=== PATIENT | male | born 1960 | race Caucasian/White ===

== ENCOUNTER 2017-01-25 23:35 | Inpatient (IN) | payer MEDICARE, OTHER ==
[~2017-01-25] VITALS: Ht 175.3 cm; Wt 60.3 kg
[2017-01-26 00:28] LABS: HEMOGLOBIN 13.8 gm/dl (14.0-17.5); RED BLOOD COUNT 3.88 M/UL (4.20-5.50)
[2017-01-26 00:42] LABS: BUN/CREATININE RATIO 4 (0-10)
[2017-01-26 07:16] LABS: BUN/CREATININE RATIO 5 (0-10)
[2017-01-26 12:34] LABS: BUN/CREATININE RATIO 8 (0-10)
[2017-01-26] MEDS ORDERED: ARICEPT10 MG PO (14:52)
[2017-01-26] MEDS ORDERED: LISINOPRIL10 MG PO (14:53)
[2017-01-26] MEDS ORDERED: TRAZODONE HCL50 MG PO (14:53)
[2017-01-26] MEDS ORDERED: LEVETIRACETAM500 MG PO (14:56)
[2017-01-26] MEDS ORDERED: PRAVASTATIN SOD10 MG PO (14:56)
[2017-01-27 04:02] LABS: HEMOGLOBIN 12.2 gm/dl (14.0-17.5); RED BLOOD COUNT 3.34 M/UL (4.20-5.50); WHITE BLOOD COUNT 4.3 K/UL (4.5-11.0)
[2017-01-27 04:04] LABS: BUN/CREATININE RATIO 8 (0-10)
[2017-01-28 03:56] LABS: HEMOGLOBIN 11.8 gm/dl (14.0-17.5); RED BLOOD COUNT 3.39 M/UL (4.20-5.50); WHITE BLOOD COUNT 3.8 K/UL (4.5-11.0)
[2017-01-28 04:17] LABS: BUN/CREATININE RATIO 8 (0-10)
[2017-01-29 04:07] LABS: HEMOGLOBIN 12.1 gm/dl (14.0-17.5); RED BLOOD COUNT 3.39 M/UL (4.20-5.50); WHITE BLOOD COUNT 3.6 K/UL (4.5-11.0)
[2017-01-29 04:28] LABS: BUN/CREATININE RATIO 15 (0-10)
[2017-01-30 05:59] LABS: BUN/CREATININE RATIO 18 (0-10)
[2017-01-30] MEDS ORDERED: THERA-M CAPLET1 EAC1 PO (18:02)
[2017-01-30] MEDS ORDERED: ENSURE LIQUID237 ML PO (18:03)
[2017-01-30] MEDS ORDERED: ZANTAC 150 MG150 MG PO (18:04)
== END 2017-01-30 18:32 | disposition home health service (06) | DRG 896 ==
LOC: ER1 23:35 → CCU 01-26 08:18 → ZEROF 01-26 08:18 → CCU 01-26 14:26 → PROG CARE 01-28 21:20 → MED SURG 4 01-29 18:12
PROVIDERS: Emergency Medicine; Internal Medicine Infectious Disease; ADMIT Internal Medicine
DX: F10.20 Alcohol dependence, uncomplicated (principal); G93.41 Metabolic encephalopathy; E87.1 Hypo-osmolality and hyponatremia; Z68.1 Body mass index [BMI] 19.9 or less, adult; E44.0 Moderate protein-calorie malnutrition; E16.2 Hypoglycemia, unspecified; I10 Essential (primary) hypertension; Z09 Encounter for follow-up examination after completed treatment for conditions other than malignant neoplasm; F17.210 Nicotine dependence, cigarettes, uncomplicated; E87.6 Hypokalemia; Z71.41 Alcohol abuse counseling and surveillance of alcoholic; E86.0 Dehydration; Z96.652 Presence of left artificial knee joint; Z91.81 History of falling; S00.93XA Contusion of unspecified part of head, initial encounter; G25.2 Other specified forms of tremor; S80.12XA Contusion of left lower leg, initial encounter; S80.11XA Contusion of right lower leg, initial encounter; S40.022A Contusion of left upper arm, initial encounter; S40.021A Contusion of right upper arm, initial encounter; X58.XXXA Exposure to other specified factors, initial encounter
CPT/HCPCS: 36415; 70450; 71010; 72125; 72170; 80048; 80053; 81001; 82010; 82550; 82553; 82607; 82947; 82962; 83690; 83735; 83874; 83880; 84439; 84443; 84484; 84681; 85025; 85027; 85610; 85730; 87086; 90715; 93005; 96361; 96374; 96376; 99285; G0378; G0480; J2060; J3411; J3475; J7030

== ENCOUNTER → 2017-02-03 | Outpatient (CLI) | payer MEDICARE ==
[~2017-02-03] MED LIST: ARICEPT10 MG PO; ENSURE LIQUID237 ML PO; LEVETIRACETAM500 MG PO; LISINOPRIL10 MG PO; PRAVASTATIN SOD10 MG PO; THERA-M CAPLET1 EAC1 PO; TRAZODONE HCL50 MG PO; ZANTAC 150 MG150 MG PO
[2017-02-03 10:32] LABS: BUN/CREATININE RATIO 7 (0-10)
== END ==
LOC: LAB 09:10
PROVIDERS: Internal Medicine Infectious Disease
DX: E87.1 Hypo-osmolality and hyponatremia (principal)
CPT/HCPCS: 36415; 80048

== ENCOUNTER 2017-02-13 11:38 | Emergency (ER) | payer MEDICARE, OTHER | END 2017-02-13 12:32 | disposition home or self-care (01) | LOC: ER1 11:38 | DX: L02.11 Cutaneous abscess of neck (principal); I10 Essential (primary) hypertension; E78.5 Hyperlipidemia, unspecified; F17.210 Nicotine dependence, cigarettes, uncomplicated; Z79.899 Other long term (current) drug therapy | CPT/HCPCS: 10061; 87070; 87205; 99283 ==